=== PATIENT | male | born 1965 | race Caucasian/White ===

== ENCOUNTER 2025-01-15 05:18 | Emergency (ER) | payer BC ==
[2025-01-15 05:38] LABS: #Basophils 0.1 thou/uL (0.0-0.2); #Eosinophils 0.1 thou/uL (0.0-0.7); #Lymphocytes 3.2 thou/uL (1.20-3.40); #Monocytes 0.7 thou/uL (0.11-0.59); #Neutrophils 5.4 thou/uL (1.40-6.50); %Basophils 1.0 % (0.0-1.0); %Eosinophils 1.2 % (0.0-10.0); %Lymphocytes 33.2 % (21.0-51.0); %Monocytes 7.7 % (0.0-10.0); %Neutrophils 57.0 % (42.0-75.0); Hematocrit 44.4 % (42.0-52.0); Hemoglobin 16.0 g/dL (14.0-18.0); Mean Corpuscular Hemoglobin 33.4 pg (27.0-31.0); Mean Corpuscular Volume 92.6 fl (78.0-98.0); Platelet Count 278 10x3/uL (130-400); Red Blood Cell (RBC) Count 4.79 mill/uL (4.70-6.10); White Blood Cell (WBC) Count 9.5 10x3/uL (4.8-10.8)
[2025-01-15] MEDS ORDERED: Nitroglycerin 0.4 MG TAB 1 EACH ONE (05:39)
[2025-01-15] MEDS ORDERED: Aspirin Chewable 81 MG TAB ONE (05:39)
[2025-01-15 05:57] LABS: ALT (SGPT) 26 U/L (Less than 45); AST (SGOT) 31 U/L (11-34); Albumin 4.2 g/dL (3.1-4.5); Alkaline Phosphatase 78 U/L (40-110); Anion Gap 17 mmol/L (10-20); BUN (Urea Nitrogen) 16 mg/dL (8.4-25.7); Bilirubin, Total 0.6 mg/dL (0.3-1.2); Calc. Creatinine Clearance 0 mL/min (70-130); Calcium 8.9 mg/dL (7.8-10.44); Carbon Dioxide 19 mmol/L (22-29); Chloride 104 mmol/L (98-107); Globulin 3.5 g/dL (2.4-3.5); Glucose 113 mg/dL (70-105); Magnesium 1.9 mg/dL (1.6-2.6); Potassium 4.3 mmol/L (3.5-5.1); Sodium 136 mmol/L (136-145)
[2025-01-15 05:58] LABS: Troponin I Less than 0.010 ng/mL (< 0.028)
[2025-01-15 07:36] LABS: Cocaine Metabolite Screen Negative (Negative); THC/Cannabinoid Screen Negative (Negative); Tricyclic Screen Negative (Negative)
[2025-01-15 08:38] LABS: Troponin I Less than 0.010 ng/mL (< 0.028)
== END 2025-01-15 09:18 | disposition home or self-care (01) ==
LOC: BURERS 05:18
DX: R07.89 Other chest pain (principal); I10 Essential (primary) hypertension; E78.5 Hyperlipidemia, unspecified; Z79.899 Other long term (current) drug therapy
CPT/HCPCS: 71045; 80053; 80306; 83735; 83880; 84484; 85025; 85379; 93005